=== PATIENT | female | born 1950 | race Caucasian/White ===

== ENCOUNTER 2017-10-10 14:52 | Emergency (ER) | payer MEDICARE, OTHER ==
[2017-10-10 15:22] LABS: BASOPHILS % 0.8 (0.0-1.5); EOSINOPHILS % 3.2 % (0.0-6.8); MEAN CORPUSCULAR HEMOGLOBIN 32.8 pg (28.0-34.0); MEAN CORPUSCULAR VOLUME 95.2 fl (80.0-100.0); MONOCYTES % 5.2 % (0.0-11.0); NEUTROPHILS # 4.1 # k/uL (1.4-7.7)
[2017-10-10 15:31] LABS: eGFR (African) > 60; eGFR (Non-African) > 60
[2017-10-10] MEDS: ASPIRIN 81 MG CHEW TAB PO ONE (15:38)
--- NOTE | 2017-10-10 15:43 | ED Physician Documentation ---
Altered Mental Status - HISTORIAN Historian: patient, paramedics - HPI Stated Complaint: chest pain Chief Complaint: Altered Mental Status Additional Information: pt at [facility] w/poss syncope c/o mc but hit head when fell also sl confused. amb [place] [facility] [place] coughed aspieated poss w/ resp distress resolved on arrival here. pt c/o lt thoracic cp which reproduced on pal pation. =- c/o mc lt frontal area describes as usual mc but slow to answer questions and sl confused in appearance re date president location etc. pt does not remember fall or being sick at [facility] but remembers the cp at [facility]. ate no breakfast had green[place] at noon versailes dont remember when arr [facility]. Onset: hours (1345) Duration: sudden onset Last known Well Date: 10/10/17 Last Known Well Time: 12:00 Last known Well Code/Unknown Code: Known Character of Altered Mental Status: confused (slightly-knows cell phone w/niece who is on way to ed [place] [facility] [place]) Cognition is Usually: alert but confused Associated Symptoms: chest pain, falling, headache. denies: fever, chills, seizure - ROS EYES/ENT: denies: problems with vision, sore throat, trouble swallowing CVS/RESP: chest pain. denies: shortness of breath, palpitations, cough GI/: none MS/SKIN/LYMPH: none NEURO/PSYCH: headache (ihd mc copd chrons cirrholsis liver) - PAST HX Past History: other (IHD CHRONS CIRRHOSIS MC) Allergies/Adverse Reactions: Allergies Allergy/AdvReac Type Severity Reaction Status Date / Time codeine Allergy Verified 10/10/17 15:20 Penicillins Allergy Verified 10/10/17 15:20 Home Medications: Ambulatory Orders Medication Instructions Recorded Unobtainable [Unobtainable] 10/10/17 - SOCIAL HX Smoking History: cigarettes Alcohol Use: none Drug Use: none - FAMILY HX Family History: no significant history - VITAL SIGNS Vital Signs: Vital Signs Temp Pulse Resp BP Pulse Ox 98.6 F 66 20 148/78 94 10/10/17 14:52 10/10/17 14:52 10/10/17 14:52 10/10/17 14:52 10/10/17 15:14 - REVIEWED ASSESSMENTS Nursing Assessment Reviewed: Yes Vitals Reviewed: Yes Progress - Results/Orders Results/Orders: pt prefers be evaluated by [place]-I called admissions tnsf to ED spoke w/ DR GORDON. he stated felt i had donw what was neceswsary but if she wanted furthur evaluation she was welcome to come and would be triaged and evaluated. spoke w/pt she will be dismissed and may go by pvt as preferred. condition appears sstable and she is coherent as lper clin exam and per her and her cousins assesment ED Results Lab/Radiology - Lab Results Lab Results: Lab Results 10/10/17 10/10/17 10/10/17 15:15 15:15 15:15 WBC 6.10 K/ul K/ul (4.00-12.00) RBC 4.36 M/ul M/ul (3.90-5.20) Hgb 14.3 g/dL g/dL (12.0-16.0) Hct 41.5 % % (34.5-46.5) MCV 95.2 fl fl (80.0-100.0) MCH 32.8 pg pg (28.0-34.0) MCHC 34.4 g/dL g/dL (30.0-36.0) RDW 13.7 % % (11.3-14.3) Plt Count 108 K/mm3 L K/mm3 (130-400) Neut % (Auto) 68.1 % % (39.0-79.0) Lymph % (Auto) 21.9 % % (16.0-50.0) [place] % (Auto) 5.2 % % (0.0-11.0) Eos % (Auto) 3.2 % % (0.0-6.8) Baso % (Auto) 0.8 (0.0-1.5) Neut # (Auto) 4.1 # k/uL # k/uL (1.4-7.7) Lymph # (Auto) 1.3 # k/uL # k/uL (0.6-4.0) [place] # (Auto) 0.3 # k/uL # k/uL (0.0-0.9) Eos # (Auto) 0.2 # k/uL # k/uL (0.0-0.6) Baso # (Auto) 0.0 # k/uL # k/uL (0.0-0.5) Reactive Lymphs % 0.8 % % (0.0-5.0) Reactive Lymphs # 0.0 # k/uL # k/uL (0.0-0.8) Sodium 145 mmol/L mmol/L (136-145) Potassium 3.7 mmol/L mmol/L (3.5-5.1) Chloride 106 mmol/L mmol/L (98-107) Carbon Dioxide 27 mmol/L mmol/L (22-30) BUN 10 mg/dL mg/dL (7-17) Creatinine 1.10 mg/dL H mg/dL (0.52-1.04) Estimated Creat Clear 98 Est GFR ( Amer) > 60 (60 - ) Est GFR (Non-Af Amer) > 60 (60 - ) Glucose 138 mg/dL H mg/dL (74-106) Calcium 9.1 mg/dL mg/dL (8.4-10.2) Total Bilirubin 1.0 mg/dL mg/dL (0.2-1.3) AST 27 U/L U/L (15-46) ALT 24 U/L U/L (13-69) Alkaline Phosphatase 113 U/L U/L (38-126) Troponin I < 0.03 ng/mL L ng/mL (0.03-0.06) Total Protein 6.8 g/dL g/dL (6.3-8.2) Albumin 3.6 g/dL g/dL (3.5-5.0) - Orders Orders: ED Orders Category Date Time Status Continuous Pulse Oximetry Q30M Care 10/10/17 15:[address] IV Lock 1T Care 10/10/17 15:[address] BRAIN W/O CONTRAST Stat Exams 10/10/17 Completed ARTERIAL BLOOD GAS Stat Lab 10/10/17 Uncollected CBC/PLATELET/DIFF Routine Lab 10/10/17 15:15 Completed CMP Routine Lab 10/10/17 15:15 Completed TROPONIN I (cTnI) Stat Lab 10/10/17 15:15 Completed Aspirin Med 10/10/17 15:14 Discontinued 324 mg PO NOW ONE HYDROcodone /APAP 5/325 [[place] 5/325] Med 10/10/17 17:26 Once 1 each PO NOW ONE EKG WITH COMPARISON Stat Ther 10/10/17 15:14 Completed Altered Mental Status Physical - Physical Exam General Appearance: mild distress, moderate distress Neuro/Psych: headache alert, other (SLOW TO RESPOND TO QUESTIONS). No: mood/affect nml Peripheral Exam: motor nml, sensation nml, reflexes nml. No: weakness, hemiparesis HEENT: [place], EOM's intact, no apparent trauma, airway intact Neck: normal inspection. No: carotid bruit Respiratory: no resp distress. No: chest non-tender (palp reprod chest pain) CVS: reg rate & rhythm, heart sounds normal Skin: warm/dry, normal color. No: cyanosis, jaundice Extremities: non-tender, normal range of motion, no evidence of injury, no edema Discharge Clincal Impression: fall w contusion head , hx migraine ceph, slight mental altered on admission- reso Referrals: Primary Doctor,No [Primary Care Provider] - 2 Days Condition: Good Disposition: 01 HOME, SELF-CARE Decision to Admit: NO Decision Time: 17:47
--- NOTE | 2017-10-10 16:01 | Diagnostic Imaging Report ---
JUNIOR SWAIN [facility] [id number] [facility] [address] [place], [place]. [address] Report Submission Date: Oct 10, 2017 4:00:09 PM TUBE TEST TECHNICIAN Patient Study Name: JAVIER JOSEPH L Date: Oct 10, 2017 3:41:43 PM TUBE TEST TECHNICIAN Modality Type: CT\SR Gender: F Description: CT BRAIN W/O CONTRAST : 48 Institution: [facility] Physician: JUNIOR SWAIN Examination: CT head without contrast History: PT STATES HEADACHE AFTER FALL X 4 HRS AGO (Hx) Comparison exam: None available Technique: Noncontrast head CT protocol. Findings: Ventricles and sulci are prominent. Cerebrocerebellar parenchyma demonstrates periventricular low attenuation consistent with small vessel disease. No evidence for parenchymal hemorrhage. No evidence for mass or mass effect. No midline shift. No extra axial fluid collections. Partial visualization of the paranasal sinuses, mastoid air cells, orbits, skull and scalp without gross irregularity. Impression: Frontal lobe atrophy and age related changes. No acute parenchymal process. No hemorrhage. Electronically signed on Oct 10, 2017 4:00:09 PM TUBE TEST TECHNICIAN by: Bhavesh MCINTOSH
[2017-10-10] MEDS: HYDROcodone /APAP 5/325 1 EACH TABLET PO ONE (17:45)
[2017-10-10 18:13] VITALS: BP 155/79
== END 2017-10-10 18:05 | disposition home or self-care (01) ==
LOC: ED 14:52
DX: R55 Syncope and collapse (principal); W19.XXXA Unspecified fall, initial encounter; Y93.9 Activity, unspecified; Y92.59 Other trade areas as the place of occurrence of the external cause; Y99.9 Unspecified external cause status
CPT/HCPCS: 70450; 80053; 84484; 85025; 93005; A9270; 99283; 99284; S1016